=== PATIENT | male | born 1985 | race Two or more races ===

== ENCOUNTER 2019-09-28 16:02 | Emergency (ER) | payer BC ==
[~2019-09-28] VITALS: Ht 182.9 cm; Wt 117.9 kg
[2019-09-28 16:30] VITALS: BP 114/82
[2019-09-28] MEDS ORDERED: Tetanus/Diptheria/Pertussis IM ONE (16:30)
--- NOTE | 2019-09-28 16:30 | NUR ---
ED Nurse Note: Pt walked in due to laceration on right eyebrow after bumping head into metal a couple of hours ago. Bleeding controlled. VSS, afebrile on triage, on RA. Placed on bed, will continue to monitor.
[2019-09-28] MEDS ORDERED: Lidocaine 2% 20mg/ml/Epi 0.005mg/ml 20ml vial INJ ONE (16:45)
[2019-09-28] MEDS ORDERED: BACITRACIN15 GM TOPIC (17:22)
--- NOTE | 2019-09-28 17:25 | Emergency Room Report ---
History of Present Illness General Chief Complaint: Laceration Source: Patient Present Illness HPI 34-year-old male presents to the emergency department complaining of laceration to the right eyebrow x1 day. Patient reports earlier this morning he turned quickly and accidentally caught his eyebrow on a sharp corner piece of metal that was sticking out. Patient reports bleeding was controlled with direct pressure. He denies eye pain he reports 2 out of 10 severity tenderness to the right eyebrow. He denies taking blood thinning medications. He is not sure when his last tetanus vaccination was. No other aggravating or relieving factors at this time. Patient denies loss of consciousness, dizziness, nausea or vomiting Allergies: Coded Allergies: No Known Allergies (Unverified , 09/28/19) COVID-19 Screening Contact w/high risk pt: No Recent Travel to affected area: No Experienced COVID-19 symptoms?: No Patient History Past Medical History: see triage record Past Surgical History: none Pertinent Family History: none Reviewed Nursing Documentation: PMH: Agreed; PSxH: Agreed Nursing Documentation-PMH Past Medical History: No History, Except For Review of Systems All Other Systems: negative except mentioned in HPI Physical Exam Vital Signs Date Time Temp Pulse Resp B/P (MAP) Pulse Ox O2 Delivery O2 Flow Rate FiO2 09/28/19 16:09 98.2 89 16 114/82 (93) 96 Room Air Sp02 EP Interpretation: reviewed, normal General Appearance: no apparent distress, alert, GCS 15, non-toxic Head: normocephalic, other - Right eyebrow laceration approx 1.5 cm in length Eyes: bilateral eye normal inspection, bilateral eye PERRL ENT: hearing grossly normal, normal voice Neck: full range of motion Respiratory: lungs clear, normal breath sounds, speaking full sentences Cardiovascular #1: regular rate, rhythm, no edema Musculoskeletal: normal range of motion, gait/station normal, non-tender Neurologic: alert, motor strength/tone normal, oriented x3, sensory intact, responsive, speech normal Psychiatric: judgement/insight normal Skin: laceration - Right eyebrow laceration approx 1.5 cm in length Procedures Laceration/Wound Repair Laceration/Wound Repair : Consent: Verbal Wound Location: face Wound's Depth, Shape: linear Wound Length (cm): 2 Wound Explored: clean Irrigated w/ Saline (ccs): 500 Anesthesia: Lidocaine w/ Epi Volume Anesthetic (ccs): 2 Wound Repaired With: sutures Suture Size/Type: 6:0 Number of Sutures: 4 Layer Closure?: No Sterile Dressing Applied?: No Sling Applied?: No Patient Tolerated: Well Complications: None Medical Decision Making PA Attestation Dr. Jhaveri Is my supervising Physician whom patient management has been discussed with. Diagnostic Impression: Primary Impression: Laceration ER Course 34-year-old male presents to the emergency department complaining of laceration to the right eyebrow x1 day. Patient reports earlier this morning he turned quickly and accidentally caught his eyebrow on a sharp corner piece of metal that was sticking out. Patient reports bleeding was controlled with direct pressure. He denies eye pain he reports 2 out of 10 severity tenderness to the right eyebrow. He denies taking blood thinning medications. He is not sure when his last tetanus vaccination was. No other aggravating or relieving factors at this time. Patient denies loss of consciousness, dizziness, nausea or vomiting Ddx considered but are not limited to laceration, tendon injury, cellulitis, amputation, eye injury just to name a few. Vital signs: are WNL, pt. is afebrile H&PE are most consistent with: Right eyebrow laceration approx 1.5 cm in length ORDERS: none required at this time, the diagnosis is clinical ED INTERVENTIONS: -Tetanus vaccine was administered as pt. vaccination status was unknown. - The wound was copiously irrigated with normal saline, and explored for foreign body for which no FB was found. - pt. is anesthetized with 1%lidocaine w. epi. - The wound was approximated and closed using 4 interrupted 6.0 Ethilon sutures. -Bacitracin is applied. Discussed with patient: That we make every effort to approximate the laceration as best as we can so that scarring will be as cosmetically pleasing as possible with our limited cosmetic skill set in the Emergency dept. Regardless of our best efforts there will be scarring after laceration repair. The extent of scarring is unknown at this time. DISCHARGE: At this time pt. is stable for d/c to home. Will provide printed patient care instructions, and any necessary prescriptions. Care plan and follow up instructions have been discussed with the patient prior to discharge. Last Vital Signs Date Time Temp Pulse Resp B/P (MAP) Pulse Ox O2 Delivery O2 Flow Rate FiO2 5/6/20 16:09 98.2 89 16 114/82 (93) 96 Room Air Disposition: HOME, SELF-CARE Condition: Stable Scripts Bacitracin (Bacitracin) 28.4 Gm Oint...g. 1 APPLIC TOPIC THREE TIMES A DAY, #28.3 GM Prov: Geeta Deshpande 09/28/19 Referrals: NON PHYSICIAN (PCP) Patient Instructions: Facial Laceration Additional Instructions: Take medications as directed. Sutures to be removed in 5 days Follow up with a Primary Care Provider in 3-5 days, even if your symptoms have resolved. Return sooner to ED if new symptoms occur, or current symptoms become worse. - Please note that this Emergency Department Report was dictated using [employer] tester technology software, occasionally this can lead to erroneous entry secondary to interpretation by the dictation equipment. Geeta Deshpande September 28, 2019 17:25
[2019-09-28 17:30] VITALS: BP 118/84
[2019-09-28] MEDS ORDERED: Bacitracin Oint UD TOPIC ONE (17:30)
--- NOTE | 2019-09-28 17:30 | NUR ---
ER DISCHARGE NOTE: Pt is cleared to be discharged per ERMD, pt is aox4, on room air, with stable vital signs. pt was given dc and prescription instructions, pt was able to verbalize understanding, pt id band removed. pt is able to ambulate with steady gait. pt took all belongings.
== END 2019-09-28 17:30 | disposition home or self-care (01) ==
LOC: EMR 16:30
DX: S01.111A Laceration without foreign body of right eyelid and periocular area, initial encounter (principal); W26.9XXA Contact with unspecified sharp object(s), initial encounter; Y92.9 Unspecified place or not applicable; Z23 Encounter for immunization
CPT/HCPCS: 90471; 90715; 99283